=== PATIENT | female | born 2005 | race Caucasian/White ===

== ENCOUNTER 2025-03-06 13:46 | Emergency (ER) | payer MEDICAID, SELFPAY ==
[2025-03-06 14:01] VITALS: BP 119/79; PULSE 85; RESP 18; TEMP 36.6; O2SAT 99
--- NOTE | 2025-03-06 14:13 | ED_ITS ---
HPI - URI/Sore Throat General Chief Complaint: Upper Respiratory Infection Stated Complaint: Congestion History of Present Illness HPI Narrative: this is a 19 y/o female patient that is currently transitioning to male that presents to the urgent care with reports of cough, sinus pressure, left ear pain for the last 5 days. He has taken OTC medications with some relief. patient is here visiting from [place], he states he has had no fever today. has been taking tylenol for ear pain. denies any chest pain, abdominal pain, nausea, vomiting or diarrhea. No headache dizziness. MD elicited complaint: cough, rhinorrhea and nasal congestion Onset (ago): day(s) (5) Consistency: constant Severity: mild Description of mucous: watery Able to tolerate fluids by mouth: Yes Context: sick contacts and recent travel Associated symptoms: denies other symptoms Related Data Home Medications ?Medication ?Instructions ?Recorded ?Confirmed ?Last Taken ?Type albuterol sulfate 90 mcg/actuation inhalation 03/06/25 Unknown History aerosol inhaler (Ventolin HFA) bupropion HCl 150 mg 24 hr tablet, mg PO 03/06/25 Unk nown History extended release bupropion HCl 300 mg 24 hr tablet, mg PO 03/06/25 Unk nown History extended release colestipol 1 gram tablet g PO 03/06/25 Unknown Histo ry duloxetine 20 mg capsule,delayed mg PO 03/06/25 Unkno wn History release testosterone cypionate 200 mg/mL mg 03/06/25 Unknown History intramuscular oil Allergies Allergy/AdvReac Type Severity Reaction Status Date / Time doxycycline Allergy Anaphylaxis Verified 03/06/25 14:09 sulfamethoxazole (From Allergy angioedema Verified 03/06/25 14:09 Bactrim) trimethoprim (From Bactrim) Allergy angioedema Verified 03/06/25 14:09 Review of Systems Review of Systems: All systems reviewed & are unremarkable except as noted in HPI and below Exam Const: General: ill appearing Nutritional Appearance: well nourished Orientation/consciousness: patient oriented x3 Limitations: no limitations HENMT: Head: normal to inspection Ears: TM abnormal bulging on the left, erythematous on the left, with fluid behind the TM on the left and not mobile on the left Face/Nose/Sinus: Nasal discharge present mucoid Face and sinus: sinus tenderness frontal and maxillary Mouth: Yes Normal oral and palatal mucosa present Teeth and gingiva: dentition normal Throat: posterior oropharynx normal Eyes: Conjunctivae: conjunctivae normal Pupils: Equal, round and reactive pupils present EOM: EOMs intact bilaterally Neck: Neck: normal visual inspection Chest: Chest palpation & inspection: normal inspection of the chest Resp: Effort & Inspection: normal respiratory effort Auscultation: clear to auscultation bilaterally Cardio: Rate: regular rate Rhythm: regular rhythm GI: GI Palp: Yes Soft to palpation Auscultation: normal bowel sounds Skin: General skin exam: normal color Rashes: no rashes Wounds: no wounds Neuro: General: patient oriented x3 Cranial nerves: Yes Nystagmus not present Speech: normal speech Extrem: General: normal to inspection Psych: Mental Status: mental status grossly normal Affect: normal affect Attitude: cooperative Course Course Emergency Course: this is a 19 y/o female patient that is currently transitioning to male that presents to the urgent care with reports of cough, sinus pressure, left ear pain for the last 5 days. He has taken OTC medications with some relief. patient is here visiting from [place], he states he has had no fever today. has been taking tylenol for ear pain. denies any chest pain, abdominal pain, nausea, vomiting or diarrhea. No headache dizziness. vitals stable COVID, Influenza testing ordered Testing resulted negative. Educated patient on exam findings, treatment plan outpatient management. He verbalizes understanding he is agreeable with this plan. educated to Increase fluids, Rest, Take Antibiotic and Steroids as prescribed. Take over the counter vitamin C 500 mg, B12 up to 1000mcg and continue your Vitamin D daily to help with immune support. Continue with symptomatic management: -? Cough medication per package instructions -? Tylenol and motrin for fever and pain -? Cough drops for sore throat and cough -? Mucinex for congestion -? Vicks vapor rub -? Cool mist vaporizer Follow up with your primary MD in the next 2-3 days for further exam or Present to the ER for any worrisome sign or symptom. He denies any further needs or concerns to be addressed prior to discharge Level of Care: Express Care Visit Vital Signs Vital signs: Vital Signs Temperature 97.9 F 03/06/25 14:01 Pulse Rate 85 03/06/25 14:01 Respiratory Rate 18 03/06/25 14:01 Blood Pressure 119/79 03/06/25 14:01 Pulse Oximetry 99 03/06/25 14:01 Oxygen Delivery Room Air 03/06/25 14:01 Temperature 97.9 F 03/06/25 14:01 Pulse Rate 85 03/06/25 14:01 Respiratory Rate 18 03/06/25 14:01 Blood Pressure 119/79 03/06/25 14:01 Pulse Oximetry 99 03/06/25 14:01 Oxygen Delivery Room Air 03/06/25 14:01 MDM MDM Narrative Medical decision making narrative: this is a 19 y/o female patient that is currently transitioning to male that presents to the urgent care with reports of cough, sinus pressure, left ear pain for the last 5 days. He has taken OTC medications with some relief. patient is h ere visiting from [place], he states he has had no fever today. has been taking tylenol for ear pain. denies any chest pain, abdominal pain, nausea, vomiting or diarrhea. No headache dizziness. vitals stable COVID, Influenza testing ordered Testing resulted negative. Educated patient on exam findings, treatment plan outpatient management. He verbalizes understanding he is agreeable with this plan. educated to Increase fluids, Rest, Take Antibiotic and Steroids as prescribed. Take over the counter vitamin C 500 mg, B12 up to 1000mcg and continue your Vitamin D daily to help with immune support. Continue with symptomatic management: -? Cough medication per package instructions -? Tylenol and motrin for fever and pain -? Cough drops for sore throat and cough -? Mucinex for congestion -? Vicks vapor rub -? Cool mist vaporizer Follow up with your primary MD in the next 2-3 days for further exam or Present to the ER for any worrisome sign or symptom. He denies any further needs or concerns to be addressed prior to discharge Differential Diagnosis Differential Diagnosis: COVID, influenza, viral illness, sinusitis, upper respiratory infection Medical Records I have reviewed the following patient records and this information was taken into consideration when formulating the assessment and plan.: previous labs Lab Data [facility] Lab Attestation statement: I personally reviewed the patient's lab results. Lab results narrative: COVID-19 negative influenza a and B negative Discharge Plan Discharge Clinical Impression: Upper respiratory infection Qualifiers: URI type: unspecified URI Qualified Code(s): J06.9 - Acute upper respiratory infection, unspecified Patient Disposition: Home Condition: Stable Instructions: Antibiotic Form, Upper Respiratory Infection (ED) Additional Instructions: Increase fluids Rest Take Antibiotic and Steroids as prescribed. Take over the counter vitamin C 500 mg, B12 up to 1000mcg and continue your Vitamin D daily to help with immune support. Continue with symptomatic management: -? Cough medication per package instructions -? Tylenol and motrin for fever and pain -? Cough drops for sore throat and cough -? Mucinex for congestion -? Vicks vapor rub -? Cool mist vaporizer Follow up with your primary MD in the next 2-3 days for further exam or Present to the ER for any worrisome sign or symptom Patient Language: Scottish Prescriptions: New azithromycin 250 mg tablet See Rx Instructions .ROUTE .COMPLEX Qty: 6 0RF Rx Instructions: For 250 mg dose pack: take 500 mg today (day 1), then 250 mg for 4 days (days 2-5) prednisone 20 mg tablet 20 mg PO BID Qty: 10 0RF No Action testosterone cypionate 200 mg/mL oil albuterol sulfate [Ventolin HFA] 90 mcg/actuation HFA aerosol inhaler INHALATION colestipol 1 gram tablet PO bupropion HCl 300 mg tablet extended release 24 hr PO Patient Comments: take with 150 mg for total of 450 mg bupropion HCl 150 mg tablet extended release 24 hr PO duloxetine 20 mg capsule,delayed release(DR/EC) PO Follow-up/Referrals: PHYSICIAN NOT ON STAFF,NONSTAFF [Primary Care Provider] Time of Disposition: 14:22
[2025-03-06 14:15] LABS: EDCOVIDSCREEN Negative (Negative); EDINFLUASCREEN Negative (Negative); EDINFLUBSCREEN Negative (Negative)
== END 2025-03-06 14:30 | disposition home or self-care (01) ==
PROVIDERS: Emergency Provider Nurse Practitioner Family
DX: J06.9 Acute upper respiratory infection, unspecified (principal); Z20.822 Contact with and (suspected) exposure to COVID-19
CPT/HCPCS: 87426; 87804; 99203; G0463